=== PATIENT | male | born 2000 | race Caucasian/White ===

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

== ENCOUNTER 2019-07-29 16:07 | Emergency (ER) | payer BC, SELFPAY ==
[2019-07-29 17:02] VITALS: BP 126/89; PULSE 79; RESP 19; TEMP 36.8; O2SAT 97; BMI 27.1
--- NOTE | 2019-07-29 17:07 | HMH.EDUTC ---
[facility] [place] Clinical Impression: Sore throat Sinusitis Qualifiers: Sinusitis location: unspecified location Chronicity: unspecified Qualified Code(s): J32.9 - Chronic sinusitis, unspecified Disposition: Home, Self-Care Condition on Discharge: Good Instructions: Sore Throat, Sinusitis, Sinus Headache, DI for Sinusitis Additional Instructions: *Monitor Temp, Over the counter Motrin or Tylenol as directed/as needed Tylenol every 4 hours and Motrin every 6 hours (as long as your family doctor has told you that you can take it) for fever or pain. and straight to ER if unable to lower temp less than 101.0 after medication given *Warm salt water gargles may help to soothe the throat *Throat Lozenges *Warm fluids *Sleep elevated *Humidifier/Vaporizer *Flonase 2 sprays in each nostril daily but be aware that it may take 2-3 days before you notice improvement Your throat swab was sent for culture. Those results are typically sent to your primary care. Be sure to follow up in 2-3 days with your family doctor/primary care physician if no improvement so they can review those result and treat if necessary. If you don?t have a primary care doctor, I recommend you get one but in the mean time, you will have to return to a walk in clinic Follow up IMMEDIATELY for new or worsening symptoms or no Noticeable improvement over the next 48-72 hours. 911 for difficulty breathing or swallowing Prescriptions: Azithromycin [Z-Juancarlos 250mg Tab] 250 mg PO DIRECTED #6 tab Transmission Status: Received by [facility] Referrals: Darrius Muñoz MD [Primary Care Provider] - As needed Time of Disposition: 17:10 Medical Decision Making - Frnak Inquiry Pt receiving controlled substance: No Frank was queried for this patient: No Vital Signs: 07/29/19 17:02 07/29/19 17:18 Temperature 98.2 F 98.2 F Temperature Source Oral Pulse Rate 79 Pulse Rate [Right Brachial] 79 Respiratory Rate 19 19 Blood Pressure 126/89 Blood Pressure [Right Arm] 126/89 Blood Pressure Mean [Right Arm] 101 Blood Pressure Source [Right Arm] Automatic Cuff Blood Pressure Position [Right Arm] Sitting 02 Sat by Pulse Oximetry 97 Oxygen Delivery Method Room Air - Lab Data Lab results reviewed: Yes: I reviewed the patient's lab results. Orders (Tests/Meds): ED MEDICATIONS Discontinued Medications Generic Name Dose Route Start Last Admin Trade Name Chinyere PRN Reason Stop Dose Admin Methylprednisolone Sodium Succinate 125 mg 07/29/19 17:07 07/29/19 17:18 Solu-Medrol 125mg/2ml Vial IM 07/29/19 17:08 125 mg ONCE ONE Administration [facility] [place] - General Stated complaint: Sore throat Time Seen by Provider: 07/29/19 17:00 Mode of Arrival: Ambulatory Source of Information: Patient Limitations: No Limitations Description of Symptoms (Recalled from Triage Doc. by RN): PATIENT C/O SORE THROAT, POSSIBLE SINUS INFECTION, AND PRODUCTIVE COUGH WITH CLEAR SPUTUM SINCE LAST NIGHT. DENIES FEVER OR ANY SICK CONTACTS HEENT Symptoms (Recalled from RN notes): Yes Resp Symptoms (Recalled from RN notes): No Skin Symptoms (Recalled from RN notes): No MS Symptoms (Recalled from RN notes): No Functional Status (Recalled from RN notes): WNL - History of Present Illness Provider Complaint: Patient states that he has been having sore throat and sinus pain and pressure States that he was worried that he may have strep throat again States that sometimes he has similar symptoms with strep and sinus infections States that his throat has been feeling scratchy and having a lot of drainage in the back of his throat so mother brought him in - Related Data Previous Rx's Medication Instructions Recorded Azithromycin [Z-Juancarlos 250mg Tab] 250 mg PO DIRECTED #6 tab 07/29/19 Allergies Allergy/AdvReac Type Severity Reaction Status Date / Time Penicillins Allergy Unknown Verified 06/23/18 09:43 - Worker's Comp Is this a Worker's Comp case
[2019-07-29 17:18] VITALS: BP 126/89; PULSE 79; RESP 19; TEMP 36.8; O2SAT 97
[2019-08-01 11:27] LABS: UTC Strep Screen (Rapid) Negative (Negative)
== END 2019-07-29 17:20 | disposition home or self-care (01) ==
PROVIDERS: Emergency Provider Nurse Practitioner; PCP Internal Medicine Adolescent Medicine
DX: J32.9 Chronic sinusitis, unspecified (principal); Z90.09 Acquired absence of other part of head and neck
CPT/HCPCS: 87880; 96372; 99202

== ENCOUNTER 2020-02-04 19:35 | Emergency (ER) | payer BC, SELFPAY ==
[2020-02-04 19:50] VITALS: BP 141/66; PULSE 101; RESP 16; TEMP 37.6; O2SAT 96; BMI 27.6
--- NOTE | 2020-02-04 20:07 | HMH.EDUTC ---
[facility] [place] Clinical Impression: URI (upper respiratory infection) Qualifiers: URI type: unspecified URI Qualified Code(s): J06.9 - Acute upper respiratory infection, unspecified Disposition: Home, Self-Care Condition on Discharge: Good Instructions: DI for Viral Upper Respiratory Infection -- Adult Additional Instructions: No sign of a bacterial infection. Likely viral. Viruses can take 7-14 days to run their course. Nasal saline and bulb syringe or nose Sophia to remove nasal drainage to help with nasal congestion. Hard to eat, drink, sleep with nasal congestion so important to keep this cleaned out. Monitor temp. Tylenol or Motrin as needed for pain or fever Encourage fluids, water, Gatorade, Powerade, Pedialyte if infant/toddler/child Warm salt water gargles Warm fluids Sore throat lozenges Sleep elevated Humidifier/vaporizer Your covid swab was sent. with strep swab. These results are typically sent to the primary care. Be sure you follow-up in 2-3 days if no improvement so we can review the results Follow-up immediately for new or worsening symptoms or no noticeable improvement over the next 48-72 hours. Referrals: Storm Devine MD [Primary Care Provider] - Time of Disposition: 20:19 Medical Decision Making - Frank Inquiry Pt receiving controlled substance: No Vital Signs: 02/04/20 19:50 Temperature 99.7 F H Temperature Source Oral Pulse Rate [Right Brachial] 101 H Respiratory Rate 16 Blood Pressure [Right Arm] 141/66 H Blood Pressure Mean [Right Arm] 91 Blood Pressure Source [Right Arm] Automatic Cuff Blood Pressure Position [Right Arm] Sitting 02 Sat by Pulse Oximetry 96 Oxygen Delivery Method Room Air Orders (Tests/Meds): ORDERS Category Date Time Status Covid-19 Nasal PCR ([facility]) Routine Lab 02/04/20 19:45 Ordered [facility] [place] - General Chief complaint: [facility] Stated complaint: sore throat, drainage, headache Time Seen by Provider: 02/04/20 20:07 Mode of Arrival: Ambulatory Source of Information: Patient Limitations: No Limitations Description of Symptoms (Recalled from Triage Doc. by RN): PATIENT C/O SORE THROAT, DRAINAGE, BACKACHE, HEADACHE, AND CHILLS THAT STARTED THIS MORNING HEENT Symptoms (Recalled from RN notes): Yes Resp Symptoms (Recalled from RN notes): No Skin Symptoms (Recalled from RN notes): No MS Symptoms (Recalled from RN notes): No Functional Status (Recalled from RN notes): WNL - History of Present Illness Provider Complaint: 19 yr old male presnets for sore throat, headache, chills and body aches that started today. no known exposer to covid - Related Data Allergies Allergy/AdvReac Type Severity Reaction Status Date / Time Penicillins Allergy Unknown Verified 06/23/18 09:43 - Worker's Comp Is this a Worker's Comp case?: No [facility] History - Hepatitis A Screen Drug use history?: No High risk sexual behaviors?: No History of sexually transmitted infection?: No Currently employed?: No Childcare worker?: No Do you have indoor plumbing?: Yes Do you have electricity?: Yes Attestation statement:: This patient has been screened for Hepatitis A risk factors. I have reviewed the patient's past medical history: Yes 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: Denies:: Diabetes Mellitus Type 1, Diabetes Mellitus Type 2, Hypertension Laterality Cases: Bilateral: Tonsillectomy - Social History Smoking Status: Never smoker Alcohol Intake: never Occupational Status: other ROS Obtained: Yes Systems reviewed as appropriate & no additional complaints - Constitutional Constitutional: Reports system reviewed and no additional complaints, except as docu, Reports body ache, Reports chills, Denies fever(s) - Eyes Eyes: Reports system reviewed and no additional complaints, except as docu, Denies eye pain - ENT Ears, Nose, Mouth, and Throat: Reports system reviewed and no additional complaints, except as docu, Reports headache(s) - Cardiovascular [facility]
[2020-02-04 20:12] LABS: UTC Influenza A Antigen Negative (Negative)
[2020-02-04 20:13] VITALS: BP 141/66; PULSE 101; RESP 16; TEMP 37.6; O2SAT 96
[2020-02-04 20:13] LABS: UTC Influenza B Antigen Negative (Negative)
[2020-02-04 20:14] LABS: UTC Strep Screen (Rapid) Negative (Negative)
--- NOTE | 2020-02-05 09:39 | PC.NURSE ---
patient notified of positive covid results
== END 2020-02-04 20:15 | disposition home or self-care (01) ==
PROVIDERS: Emergency Provider Nurse Practitioner Family; PCP Internal Medicine Adolescent Medicine
DX: U07.1 COVID-19 (principal)
CPT/HCPCS: 87804; 87880; 99201; U0003

== ENCOUNTER 2022-03-02 12:41 | Emergency (ER) | payer BC, SELFPAY ==
--- NOTE | 2022-03-02 13:26 | EXP.UTC ---
Discharge Plan Disposition Patient Disposition: Home, Self-Care Referrals Follow up/Referrals: Storm Devine MD [Primary Care Provider] - See instructions Discharge ED Provider: Darrius [place]ers [facility] [place] Stated complaint: Congestion,cough Time Seen by Provider: 03/02/22 13:26 History of Present Illness Provider Complaint: He states that for the past 2 days he has had worsening sinus congestion, sore throat and chest congestion. He is coughing up yellowish sputum. He denies fever and chills. Related Data Allergies Allergy/AdvReac Type Severity Reaction Status Date / Time Penicillins Allergy Unknown Verified 06/23/18 09:43 [facility] Disclaimer: The information contained in this section may have been updated after the patient was seen, as this information can be updated by other users. 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 No significant past medical history Social History Smoking Status: Never smoker alcohol intake: never current occupational status: other Travel in the last 8 weeks: None ROS Obtained: Yes All systems reviewed & no additional complaints except as documented Constitutional Constitutional: Reports chills and Reports fever(s) Eyes Eyes: Denies eye discharge ENT Ears, Nose, Mouth, and Throat: Reports as per HPI Cardiovascular Cardiovascular: Denies chest pain Respiratory Respiratory: Denies chest congestion and Reports cough Gastrointestinal Gastrointestingal: Reports nausea; Denies abdominal pain, constipation, cramping, diarrhea or vomiting Musculoskeletal Musculoskeletal: Denies arthralgias Integumentary/Breasts Skin/Breast: Denies rash Neurologic Neurologic: Denies paresthesias Physical Exam General General appearance: alert and in no apparent distress Eye Eye exam: Present normal appearance, PERRL and EOMI ENT ENT exam: Present mucous membranes moist and normal external ear exam Expanded ENT Exam External ear exam: Present normal external inspection TM/Canal exam: Bilateral TM: erythema and bulging Nose exam: Absent sinus tenderness Nasal speculum exam: Bilateral: normal Mouth exam: Present normal external inspection; Absent drooling Teeth exam: Present normal inspection Throat exam: Present tonsillar erythema and tonsillomegaly Neck Neck exam: Present normal inspection, full ROM and trachea midline; Absent tenderness, lymphadenopathy or thyromegaly Chest Chest inspection: Present normal inspection and symmetric chest wall rise; Absent tenderness or rash Respiratory Respiratory exam: Present normal lung sounds bilaterally; Absent respiratory distress, wheezes, stridor or accessory muscle use Cardiovascular Cardiovascular exam: Present regular rate, normal rhythm and normal heart sounds Abdominal Exam Abdominal exam: Present soft; Absent distention, tenderness, guarding, rebound or rigidity Extremities Exam Extremities exam: Present normal inspection, full ROM and normal capillary refill; Absent tenderness or calf tenderness Back Exam Back exam: Present normal inspection and full ROM; Absent tenderness Neurological Exam Neurological exam: Present alert and oriented X3 Psychiatric Psychiatric exam: Present normal affect and normal mood Skin Skin exam: Present warm, dry, intact and normal color Lymphatic Lymphatic Findings: no adenopathy Medical Decision Making Medical Records Medical records reviewed: No I reviewed the patient's medical records. Frank Inquiry Pt receiving controlled substance: No
[2022-03-02 13:30] VITALS: BP 121/102; PULSE 73; RESP 20; TEMP 37.3; O2SAT 97; BMI 25.7
[2022-03-02 13:53] VITALS: BP 121/102; PULSE 73; RESP 20; TEMP 37.3; O2SAT 97
[2022-03-02 13:56] LABS: UTC Strep Screen (Rapid) Negative (Negative)
== END 2022-03-02 14:14 | disposition home or self-care (01) ==
PROVIDERS: Emergency Provider Nurse Practitioner Family; PCP Internal Medicine Adolescent Medicine
DX: J40 Bronchitis, not specified as acute or chronic (principal); J32.9 Chronic sinusitis, unspecified
CPT/HCPCS: 87880; 96372; 99212; 99213; G0463

== ENCOUNTER 2022-12-29 08:01 | Emergency (ER) | payer BC, SELFPAY ==
[2022-12-29 08:10] VITALS: BP 123/87; PULSE 73; RESP 18; TEMP 36.6; O2SAT 97; BMI 26.7
[2022-12-29 08:28] LABS: UTC Strep Screen (Rapid) Negative (Negative)
--- NOTE | 2022-12-29 08:38 | EXP.UTC ---
Discharge Plan Disposition Patient Disposition: Home, Self-Care Condition: Good Prescriptions Prescriptions: New prednisone [prednisone] 20 mg tablet 20 mg PO BID 3 Days Qty: 6 0RF owripgnczgzqbie-gemglmdnf-ES [Bromfed DM] 2-30-10 mg/5 mL Syrup 5 ml PO Q6H PRN (Reason: Cough) Qty: 240 0RF cefdinir 300 mg capsule 300 mg PO BID Qty: 20 0RF Referrals Follow up/Referrals: Storm Devine MD [Primary Care Provider] - See instructions Activity Restrictions/Add. Instructions Additional Instructions/Restrictions: Drink plenty of fluids. Take tylenol or ibuprofen for pain or fever. Take the medications as directed. Follow up with your regular doctor. GO TO THE ER FOR ANY WORSENING SYMPTOMS Clinical Impressions Clinical Impression: Sore throat Stand Alone Forms Stand Alone Forms: Work/School Release Instructions Patient Instructions: DI for Strep Throat Discharge ED Provider: Darrius Byers [facility] General Stated complaint: sore throat with drainage Mode of Arrival: Ambulatory Source of Information: Patient Limitations: No Limitations Time Seen by Provider: 12/29/22 08:38 Description of Symptoms (Recalled from Triage Doc. by RN): sinus pressure, sore throat, and nasal drainage HEENT Symptoms (Recalled from RN notes): Yes Resp Symptoms (Recalled from RN notes): No Skin Symptoms (Recalled from RN notes): No MS Symptoms (Recalled from RN notes): No Functional Status (Recalled from RN notes): n/a History of Present Illness Provider Complaint: He states that for the past 2 days he has had sore throat, chills, body aches and low grade fever. Related Data Previous Rx's Medication Instructions Recorded ezwhkebyubovgvp-crdcrcvzxeljtzg-DY 5 ml PO Q6H PRN Cough #240 mL 12/29/22 2 mg-30 mg-10 mg/5 mL oral syrup (Bromfed DM) cefdinir 300 mg capsule 300 mg PO BID #20 caps 12/29/22 prednisone 20 mg tablet 20 mg PO BID 3 days #6 tabs 12/29/22 Allergies Allergy/AdvReac Type Severity Reaction Status Date / Time Penicillins Allergy Unknown Verified 12/29/22 08:23 Worker's Comp Is this a Worker's Comp case?: No [facility] Disclaimer: The information contained in this section may have been updated after the patient was seen, as this information can be updated by other users. 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 No significant past medical history Social History Smoking Status: Never smoker alcohol intake: never current occupational status: other Travel in the last 8 weeks: None ROS Obtained: Yes All systems reviewed & no additional complaints except as documented Constitutional Constitutional: Reports chills and Reports fever(s) Eyes Eyes: Denies eye discharge ENT Ears, Nose, Mouth, and Throat: Reports as per HPI Cardiovascular Cardiovascular: Denies chest pain Respiratory Respiratory: Denies chest congestion and Reports cough Gastrointestinal Gastrointestingal: Reports nausea; Denies abdominal pain, constipation, cramping, diarrhea or vomiting Musculoskeletal Musculoskeletal: Denies arthralgias Integumentary/Breasts Skin/Breast: Denies rash Neurologic Neurologic: Denies paresthesias Physical Exam General General appearance: alert and in no apparent distress Head Head exam: atraumatic, normocephalic and normal inspection Eye Eye exam: Present normal appearance, PERRL and EOMI ENT ENT exam: Present mucous membranes moist and normal external ear exam Expanded ENT Exam TM/Canal exam: Bilateral TM: erythema and bulging Nose exam: Absent sinus tenderness Mouth exam: Present normal external inspection; Absent drooling Teeth exam: Present normal inspection Throat exam: Present tonsillar erythema, tonsillomegaly and tonsillar exudate Neck Neck exam: Present normal inspection, full ROM and trachea midline; Absent tenderness, meningismus or lymphadenopathy Chest Chest inspection: Presen
[2022-12-29 08:49] VITALS: BP 123/87; PULSE 73; RESP 18; TEMP 36.6; O2SAT 97
== END 2022-12-29 08:49 | disposition home or self-care (01) ==
PROVIDERS: Emergency Provider Nurse Practitioner Family; PCP Internal Medicine Adolescent Medicine
DX: J02.9 Acute pharyngitis, unspecified (principal); R68.83 Chills (without fever)
CPT/HCPCS: 87880; 99212; 99214; G0463

== ENCOUNTER 2023-02-26 15:25 | Emergency (ER) | payer BC, SELFPAY ==
[2023-02-26 15:40] VITALS: BP 111/58; PULSE 75; RESP 20; TEMP 37.1; O2SAT 96; BMI 26.2
--- NOTE | 2023-02-26 16:27 | ED_ITS ---
Discharge Plan Disposition Patient Disposition: Home, Self-Care Condition: Good Prescriptions Prescriptions: New azithromycin [Zithromax Z-Juancarlos] 250 mg tablet See Rx Instructions .ROUTE .COMPLEX 5 Days Qty: 6 0RF Rx Instructions: For 250 mg dose pack: take 500 mg today (day 1), then 250 mg for 4 days (days 2-5) methylprednisolone [Medrol (Juancarlos)] 4 mg tablets,dose pack See Rx Instructions .Route .COMPLEX 6 Days Qty: 21 0RF Rx Instructions: taper pack; Referrals Follow up/Referrals: Storm Devine MD [Primary Care Provider] - See instructions Activity Restrictions/Add. Instructions Additional Instructions/Restrictions: Monitor Temp, Over the counter Motrin or Tylenol as directed/as needed Tylenol every 4 hours and Motrin every 6 hours (as long as your family doctor has told you that you can take it) for fever or pain. and straight to ER if unable to lower temp less than 101.0 after medication given *Sleep elevated *Humidifier/Vaporizer *Take medication as prescribed Follow up IMMEDIATELY for new or worsening symptoms or no Noticeable improvement over the next 48-72 hours. 911 for difficulty breathing or swallowing Clinical Impressions Clinical Impression: Sinusitis Qualifiers: Sinusitis location: unspecified location Chronicity: unspecified Qualified Code(s): J32.9 - Chronic sinusitis, unspecified Instructions Patient Instructions: DI for Sinusitis, Sinusitis Discharge ED Provider: Lizett Day [facility] General Stated complaint: Body aches, cough, headache Mode of Arrival: Ambulatory Source of Information: Patient Limitations: No Limitations Time Seen by Provider: 02/26/23 16:27 Description of Symptoms (Recalled from Triage Doc. by RN): PATIENT C/O SINUS PRESSURE, HEADACHE AND BODY ACHES THAT STARTED LAST NIGHT HEENT Symptoms (Recalled from RN notes): Yes Resp Symptoms (Recalled from RN notes): No Skin Symptoms (Recalled from RN notes): No MS Symptoms (Recalled from RN notes): No Functional Status (Recalled from RN notes): WNL History of Present Illness Provider Complaint: Patient states that he works in [employer] and did a job a few days ago and got his sinuses acting up States that last night they got worse States that he has been having sinus pain and pressure, headache and feeling achy so he came in today to get something to help clear it up before it got too bad Related Data Previous Rx's Medication Instructions Recorded azithromycin 250 mg tablet See Rx Instructions PO .COMPLEX 5 02/26/23 (Zithromax Z-Juancarlos) days #6 tabs methylprednisolone 4 mg tablets in See Rx Instructions .Route 02/26/23 a dose pack (Medrol (Juancarlos)) .COMPLEX 6 days #21 tabs Allergies Allergy/AdvReac Type Severity Reaction Status Date / Time Penicillins Allergy Unknown Verified 12/29/22 08:23 Worker's Comp Is this a Worker's Comp case?: No [facility] Disclaimer: The information contained in this section may have been updated after the patient was seen, as this information can be updated by other users. 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 No significant past medical history Social History Smoking Status: Never smoker alcohol intake: never current occupational status: other Travel in the last 8 weeks: None ROS Obtained: Yes All systems reviewed & no additional complaints except as documented and Yes Systems reviewed as appropriate & no additional complaints except as documented Constitutional Constitutional: Reports system reviewed and no additional complaints, except as documented, Reports as per HPI, Reports body ache and Reports headache(s) ENT Ears, Nose, Mouth, and Throat: Reports system reviewed and no additional complaints, except as documented, Reports as per HPI, Reports headache(s), Reports sinus pain and Reports sinus pressure Cardiovascular Cardiovascular: Reports system reviewed and no additional complaints, except as documented and Reports as per HPI Respiratory Respiratory: Reports system reviewed and no additional complaints, except as documented and Reports as per HPI Gastrointestinal Gastrointestingal: Reports system reviewed and no additional complaints, except as documented and as per HPI Neurologic Neurologic: Reports headache(s) Physical Exam General General appearance: alert and in no apparent distress ENT ENT exam: Present mucous membranes moist Expanded ENT Exam Nose exam: Present sinus tenderness Throat exam: Present other (Pharyngeal erythema noted with PND) Respiratory Respiratory exam: Present normal lung sounds bilaterally; Absent respiratory distress or wheezes Cardiovascular Cardiovascular exam: Present regular rate, normal rhythm and normal heart sounds Neurological Exam Neurological exam: Present alert, oriented X3 and normal gait Medical Decision Making Frank Inquiry Pt receiving controlled substance: No Frank was queried for this patient: No Vital Signs: 02/26/23 15:40 Temperature 98.8 F Temperature Source Oral Pulse Rate [Left Brachial] 75 Respiratory Rate 20 Blood Pressure [Left Arm] 111/58 L Blood Pressure Mean [Left Arm] 75 Blood Pressure Source [Left Arm] Automatic Cuff Blood Pressure Position [Left Arm] Sitting 02 Sat by Pulse Oximetry 96 Oxygen Delivery Method Room Air
[2023-02-26 16:36] VITALS: BP 111/58; PULSE 75; RESP 20; TEMP 37.1; O2SAT 96
== END 2023-02-26 16:37 | disposition home or self-care (01) ==
PROVIDERS: Emergency Provider Nurse Practitioner; PCP Internal Medicine Adolescent Medicine
DX: J01.90 Acute sinusitis, unspecified (principal); R51.9 Headache, unspecified; R09.81 Nasal congestion; R05.9 Cough, unspecified; M79.18 Myalgia, other site
CPT/HCPCS: 99212; 99214; G0463

== ENCOUNTER 2023-05-16 08:59 | Emergency (ER) | payer BC, SELFPAY ==
[2023-05-16 09:10] VITALS: BP 119/70; PULSE 74; RESP 18; TEMP 37; O2SAT 99; BMI 25.2
[2023-05-16 09:36] LABS: UTC Influenza A Antigen Negative (Negative); UTC Influenza B Antigen Negative (Negative); UTC Strep Screen (Rapid) Negative (Negative)
[2023-05-16 09:37] VITALS: BP 119/70; PULSE 74; RESP 18; TEMP 37; O2SAT 99
--- NOTE | 2023-05-16 09:38 | ED_ITS ---
Discharge Plan Disposition Patient Disposition: Home, Self-Care Condition: Good Prescriptions Prescriptions: New cefdinir 300 mg capsule 300 mg PO BID Qty: 20 0RF Referrals Follow up/Referrals: Storm Devine MD [Primary Care Provider] - See instructions Activity Restrictions/Add. Instructions Additional Instructions/Restrictions: Start antibiotic patient to take as ordered for a full length of time even if you feel better. Sinus infections do not get better overnight. It may take 2-3 days to notice much improvement so be sure to use conservative measures as discussed for symptoms. Flonase 1 spray each nostril daily to help with nasal congestion, sinus and ear pressure/information Increase fluids Humidifier/vaporizer as needed Tylenol and ibuprofen as needed for fever or pain. If symptoms do not improve or get worse return or be seen in the ER Follow-up with primary care this week Clinical Impressions Clinical Impression: Sinusitis Instructions Patient Instructions: DI for Sinusitis Discharge [facility] HPI General Stated complaint: bodyaches, sore throat Mode of Arrival: Ambulatory Source of Information: Patient Limitations: No Limitations Time Seen by Provider: 05/16/23 09:39 Description of Symptoms (Recalled from Triage Doc. by RN): PATIENT C/O BODY ACHES AND SORE THROAT SINCE YESTERDAY HEENT Symptoms (Recalled from RN notes): Yes Resp Symptoms (Recalled from RN notes): No Skin Symptoms (Recalled from RN notes): No MS Symptoms (Recalled from RN notes): No Functional Status (Recalled from RN notes): WNL History of Present Illness Provider Complaint: 22 yr old male presents for sinus pressure, thick dark yellow drainage, body aches and chills Related Data Previous Rx's Medication Instructions Recorded cefdinir 300 mg capsule 300 mg PO BID #20 caps 05/16/23 Allergies Allergy/AdvReac Type Severity Reaction Status Date / Time Penicillins Allergy Unknown Verified 12/29/22 08:23 Worker's Comp Is this a Worker's Comp case?: No [facility] Disclaimer: The information contained in this section may have been updated after the patient was seen, as this information can be updated by other users. 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) Smoking Status: Never smoker alcohol intake: never current occupational status: other Travel in the last 8 weeks: None ROS Obtained: Yes All systems reviewed & no additional complaints except as documented Constitutional Constitutional: Reports system reviewed and no additional complaints, except as documented, Reports as per HPI, Reports body ache and Reports chills Eyes Eyes: Reports system reviewed and no additional complaints, except as documented ENT Ears, Nose, Mouth, and Throat: Reports system reviewed and no additional complaints, except as documented, Reports as per HPI, Reports nasal congestion, Reports nasal discharge, Reports post nasal drip, Reports sinus pain and Reports sinus pressure Cardiovascular Cardiovascular: Reports system reviewed and no additional complaints, except as documented Respiratory Respiratory: Reports system reviewed and no additional complaints, except as documented Musculoskeletal Musculoskeletal: Reports system reviewed and no additional complaints, except as documented Integumentary/Breasts Skin/Breast: Reports system reviewed and no additional complaints, except as documented Neurologic Neurologic: Reports system reviewed and no additional complaints, except as documented Endocrine Endocrine: Reports system reviewed and no additional complaints, except as documented Hematologic/Lymphatic Henatologic/Lymphatic: Reports system reviewed and no additional complaints, except as documented Allergic/Immunologic Allergic/Immunologic: Reports system reviewed and no additional complaints, except as documented Physical Exam General General appearance: alert and in no apparent distress Head Head exam: atraumatic Eye Eye exam: Present normal appearance and PERRL ENT ENT exam: Present mucous membranes moist and TM's normal bilaterally Expanded ENT Exam Nose exam: Present sinus tenderness Respiratory Respiratory exam: Present normal lung sounds bilaterally Cardiovascular Cardiovascular exam: Present regular rate and normal rhythm Neurological Exam Neurological exam: Present alert and oriented X3 Skin Skin exam: Present warm and intact Medical Decision Making Medical Records Medical records reviewed: Yes I reviewed the patient's medical records. Frank Inquiry Pt receiving controlled substance: No Frank was queried for this patient: No Vital Signs: 05/16/23 09:10 05/16/23 09:37 Temperature 98.6 F 98.6 F Temperature Source Oral Pulse Rate 74 Pulse Rate [Left Brachial] 74 Respiratory Rate 18 18 Blood Pressure 119/70 Blood Pressure [Left Arm] 119/70 Blood Pressure Mean [Left Arm] 86 Blood Pressure Source [Left Arm] Automatic Cuff Blood Pressure Position [Left Arm] Sitting 02 Sat by Pulse Oximetry 99 Oxygen Delivery Method Room Air Lab Data Lab results reviewed: Yes I reviewed the patient's lab results. Lab Results 05/16/23 09:13: Influenza Type A Ag Negative, Influenza Type B Ag Negative, Strep Scn Rapid Clinic Negative Orders (Tests/Meds): ORDERS Category Date Time Status Strep Screen Confirmation Stat Micro 05/16/23 09:13 Received
[2023-05-16] MEDS: DEXAMETHASONE 4MG/ML 1ML VIAL 4 MG IM (09:48)
== END 2023-05-16 09:57 | disposition home or self-care (01) ==
PROVIDERS: Emergency Provider Nurse Practitioner Family; PCP Internal Medicine Adolescent Medicine
DX: J01.90 Acute sinusitis, unspecified (principal); J02.9 Acute pharyngitis, unspecified
CPT/HCPCS: 87804; 87880; 96372; 99212; 99214; G0463

== ENCOUNTER 2024-01-22 08:01 | Emergency (ER) | payer BC, SELFPAY ==
[2024-01-22 08:09] VITALS: BP 143/45; PULSE 87; RESP 18; TEMP 37.2; O2SAT 96; BMI 27.3
--- NOTE | 2024-01-22 08:14 | ED_ITS ---
Discharge Plan Disposition Patient Disposition: Home, Self-Care Condition: Good Prescriptions Prescriptions: New doxycycline hyclate 100 mg capsule 100 mg PO BID Qty: 20 0RF methylprednisolone [Medrol (Juancarlos)] 4 mg tablets,dose pack See Rx Instructions .Route .COMPLEX 6 Days Qty: 21 0RF Rx Instructions: taper pack; [id number]-DO [Bromfed DM] 2-30-10 mg/5 mL syrup 10 ml PO Q6H PRN (Reason: cold symptoms) Qty: 150 0RF Referrals Follow up/Referrals: Storm Devine MD [Primary Care Provider] - See instructions Activity Restrictions/Add. Instructions Additional Instructions/Restrictions: *Monitor Temp, Over the counter Motrin or Tylenol as directed/as needed Tylenol every 4 hours and Motrin every 6 hours (as long as your family doctor has told you that you can take it) for fever or pain. and straight to ER if unable to lower temp less than 101.0 after medication given *Warm salt water gargles may help to soothe the throat *Throat Lozenges? *Warm fluids like tea with honey may help to soothe the throat? *Sleep elevated *Humidifier/Vaporizer Take medication as prescribed Follow up IMMEDIATELY for new or worsening symptoms or no Noticeable improvement over the next 48-72 hours. 911 for difficulty breathing or swallowi ng Clinical Impressions Clinical Impression: Sinusitis Instructions Patient Instructions: DI for Sinusitis, Sinusitis Print Language Print Language: Yoruba Discharge ED Provider: Lizett Day [facility] HPI General Stated complaint: sinus pressure, headache Mode of Arrival: Ambulatory Source of Information: Patient Time Seen by Provider: 01/22/24 08:14 Description of Symptoms (Recalled from Triage Doc. by RN): ? thinks he has a sinus infection, congestion and nasal pressure, thick drainage HEENT Symptoms (Recalled from RN notes): Yes Resp Symptoms (Recalled from RN notes): No Skin Symptoms (Recalled from RN notes): No MS Symptoms (Recalled from RN notes): No Functional Status (Recalled from RN notes): WNL History of Present Illness Provider Complaint: Patient states feels like he has a sinus infection States he has been having sinus congestion and pressure, pressure behind his eyes, and at times coughing up some thick yellowish colored mucous that has got worse over the last few days States today wasnt feeling any better so he came in to get it checked Related Data Previous Rx's ?Medication ?Instructions ?Recorded [id number]-njmonixgpmncyzn-FE 10 ml PO Q6H PRN cold symptoms 01/22/24 2 mg-30 mg-10 mg/5 mL oral syrup #150 mL (Bromfed DM) doxycycline hyclate 100 mg capsule 100 mg PO BID #20 caps 01/22/24 methylprednisolone 4 mg tablets in See Rx Instructions .Route 01/22/24 a dose pack (Medrol (Juancarlos)) .COMPLEX 6 days #21 tabs Allergies Allergy/AdvReac Type Severity Reaction Status Date / Time Penicillins Allergy Unknown Verified 12/29/22 08:23 Worker's Comp Is this a Worker's Comp case?: No [facility] Disclaimer: The information contained in this section may have been updated after the patien angelo was seen, as this information can be updated by other users. 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) Smoking Status: Never smoker alcohol intake: never current occupational status: other ROS Obtained: Yes All systems reviewed & no additional complaints except as documented and Yes Systems reviewed as appropriate & no additional complaints except as documented Constitutional Constitutional: Reports system reviewed and no additional complaints, except as documented and Reports as per HPI ENT Ears, Nose, Mouth, and Throat: Reports system reviewed and no additional complaints, except as documented, Reports as per HPI, Reports sinus pain and Reports sinus pressure Cardiovascular Cardiovascular: Reports system reviewed and no additional complaints, except as documented and Reports as per HPI Respiratory Respiratory: Reports system reviewed and no additional complaints, except as documented, Reports as per HPI, Denies shortness of breath, Reports chest congestion and Reports cough Gastrointestinal Gastrointestingal: Reports system reviewed and no additional complaints, except as documented and as per HPI Physical Exam General General appearance: alert and in no apparent distress ENT ENT exam: Present mucous membranes moist and TM's normal bilaterally Expanded ENT Exam Nose exam: Present sinus tenderness Throat exam: Present other (Pharyngeal erythema noted with PND) Chest Chest inspection: Present normal inspection and symmetric chest wall rise Respiratory Respiratory exam: Present normal lung sounds bilaterally; Absent respiratory distress or wheezes Cardiovascular Cardiovascular exam: Present regular rate, normal rhythm and normal heart sounds Abdominal Exam Abdominal exam: Present soft and normal bowel sounds; Absent distention or tenderness Neurological Exam Neurological exam: Present alert, oriented X3 and normal gait Medical Decision Making Medical Records Screening: Per USPSTF and CDC recommendations, given the prevalence of disease in our region, it is our hospital?s policy to screen for HIV and viral Hepatitis for al l patients aged 18 and over and those with ongoing risk factors. Frank Inquiry Pt receiving controlled substance: No Frank was queried for this patient: No Vital Signs: 01/22/24 08:09 Temperature 98.9 F Temperature Source Oral Pulse Rate [Left Radial] 87 Respiratory Rate 18 Blood Pressure [Left Arm] 143/45 H Blood Pressure Mean [Left Arm] 77 02 Sat by Pulse Oximetry 96
[2024-01-22 08:20] VITALS: BP 143/45; PULSE 87; RESP 18; TEMP 37.2
== END 2024-01-22 08:23 | disposition home or self-care (01) ==
PROVIDERS: Emergency Provider Nurse Practitioner; PCP Internal Medicine Adolescent Medicine
DX: J01.90 Acute sinusitis, unspecified (principal); R09.81 Nasal congestion; R51.9 Headache, unspecified
CPT/HCPCS: 99212; G0381

== ENCOUNTER 2024-03-08 08:23 | Emergency (ER) | payer BC, SELFPAY ==
[2024-03-08 08:33] VITALS: BP 148/67; PULSE 68; RESP 18; TEMP 37.1; O2SAT 96; BMI 26.3
--- NOTE | 2024-03-08 08:37 | EXP.UTC ---
Discharge Plan Disposition Patient Disposition: Home, Self-Care Condition: Good Prescriptions Prescriptions: New methylprednisolone 4 mg Tablets,Dose Pack 4 mg PO DIRECTED 6 Days Qty: 21 0RF Rx Instructions: Take 1 pack as directed for 6 days [id number]-[id number]-IP [Bromfed DM] 2-30-10 mg/5 mL Syrup 5 ml PO Q6H PRN (Reason: Cough) Qty: 240 0RF azithromycin [Zithromax] 250 mg tablet 250 mg PO UD DOSE PK Qty: 6 0RF Rx Instructions: Take two (2) tablets today, then one (1) tablet days #2 thru #5 Referrals Follow up/Referrals: Storm Devine MD [Primary Care Provider] - See instructions Activity Restrictions/Add. Instructions Additional Instructions/Restrictions: Drink plenty of fluids. Take tylenol or ibuprofen for pain or fever. Take the medications as directed. Follow up with your regular doctor. GO TO THE ER FOR ANY WORSENING SYMPTOMS Clinical Impressions Clinical Impression: Pharyngitis Sinusitis Qualifiers: Sinusitis location: unspecified location Chronicity: unspecified Qualified Code(s): J32.9 - Chronic sinusitis, unspecified Instructions Patient Instructions: Sore Throat, DI for Pharyngitis/Tonsillopharyngitis -- Adult, DI for Sinusitis, Methylprednisolone, Azithromycin Print Language Print Language: New Zealander Discharge ED Provider: Darrius Byers [facility] General Stated complaint: sore throat congestion Mode of Arrival: Ambulatory Source of Information: Patient Time Seen by Provider: 03/08/24 08:37 Description of Symptoms (Recalled from Triage Doc. by RN): sore throat, weakness, congestion, sinus drainage HEENT Symptoms (Recalled from RN notes): Yes Resp Symptoms (Recalled from RN notes): No Skin Symptoms (Recalled from RN notes): No MS Symptoms (Recalled from RN notes): No Functional Status (Recalled from RN notes): wnl History of Present Illness Provider Complaint: He states that he has had a sore throat and sinus congestion for the past 3 days. He denies any fever/chills/body aches. Related Data Previous Rx's ?Medication ?Instructions ?Recorded azithromycin 250 mg tablet 250 mg PO UD DOSE PK #6 tabs 03/08/24 (Zithromax) [id number]-lsllwxxpwbtgcud-IP 5 ml PO Q6H PRN Cough #240 mL 03/08/24 2 mg-30 mg-10 mg/5 mL oral syrup (Bromfed DM) methylprednisolone 4 mg tablets in 4 mg PO DIRECTED 6 days #21 tabs 03/08/24 a dose pack Allergies Allergy/AdvReac Type Severity Reaction Status Date / Time Penicillins Allergy Unknown Verified 12/29/22 08:23 Worker's Comp Is this a Worker's Comp case?: [facility] Disclaimer: The information contained in this section may have been updated after the patient was seen, as this information can be updated by other users. 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 Social History (Updated 01/22/24 @ 08:19 by Lizett Day ENVIRONMENTAL PROGRAMS MANAGER) Smoking Status: Never smoker alcohol intake: never current occupational status: other Travel in the last 8 weeks: None ROS Obtained: Yes All systems reviewed & no additional complaints except as documented Constitutional Constitutional: Reports as per HPI, Denies chills and Denies fever(s) Eyes Eyes: Denies eye discharge ENT Ears, Nose, Mouth, and Throat: Reports as per HPI Cardiovascular Cardiovascular: Denies chest pain Respiratory Respiratory: Denies chest congestion and Reports cough Gastrointestinal Gastrointestingal: Reports nausea; Denies abdominal pain, constipation, cramping, diarrhea or vomiting Musculoskeletal Musculoskeletal: Denies arthralgias Integumentary/Breasts Skin/Breast: Denies rash Neurologic Neurologic: Denies paresthesias Physical Exam General General appearance: alert and in no apparent distress Head Head exam: atraumatic, normocephalic and normal inspection Eye Eye exam: Present normal appearance, PERRL and EOMI ENT ENT exam: Present mucous membranes moist and normal external ear exam Expanded ENT Exam TM/Canal exam: Bilateral TM: erythema and bulging Nose exam: Absent sinus tenderness Mouth exam: Present normal external inspection; Absent drooling Teeth exam: Present normal inspection Throat exam: Present tonsillar erythema, tonsillomegaly and tonsillar exudate Neck Neck exam: Present normal inspection, full ROM and trachea midline; Absent tenderness, meningismus or lymphadenopathy Chest Chest inspection: Present normal inspection and symmetric chest wall rise; Absent tenderness Respiratory Respiratory exam: Present normal lung sounds bilaterally; Absent respiratory distress, wheezes or stridor Cardiovascular Cardiovascular exam: Present regular rate and normal rhythm; Absent systolic murmur or diastolic murmur Abdominal Exam Abdominal exam: Present soft and normal bowel sounds; Absent distention, tenderness, guarding, rebound or rigidity Extremities Exam Extremities exam: Present normal inspection and normal capillary refill; Absent calf tenderness Back Exam Back exam: Present normal inspection and full ROM; Absent tenderness, CVA tenderness (R) or CVA tenderness (L) Neurological Exam Neurological exam: Present alert, oriented X3 and CN II-XII intact Psychiatric Psychiatric exam: Present normal affect and normal mood Skin Skin exam: Present warm, dry, intact and normal color Medical Decision Making Medical Records Medical records reviewed: No I reviewed the patient's medical records. Screening: Per USPSTF and CDC recommendations, given the prevalence of disease in our region, it is our hospital?s policy to screen for HIV and viral Hepatitis for all patients aged 18 and over and those with ongoing risk factors. Frank Inquiry Pt receiving controlled substance: No Vital Signs: 03/08/24 08:33 Temperature 98.7 F Temperature Source Oral Pulse Rate [Left Radial] 68 Respiratory Rate 18 Blood Pressure [Left Arm] 148/67 H Blood Pressure Mean [Left Arm] 94 02 Sat by Pulse Oximetry 96 Lab Data Lab results reviewed: Yes I reviewed the patient's lab results.
[2024-03-08 08:44] LABS: UTC Strep Screen (Rapid) Negative (Negative)
[2024-03-08 08:47] VITALS: BP 148/67; PULSE 68; RESP 18; TEMP 37.1
== END 2024-03-08 08:49 | disposition home or self-care (01) ==
PROVIDERS: Emergency Provider Nurse Practitioner Family; PCP Internal Medicine Adolescent Medicine
DX: J02.9 Acute pharyngitis, unspecified (principal); J32.9 Chronic sinusitis, unspecified; R05.9 Cough, unspecified; R11.0 Nausea
CPT/HCPCS: 87880; 99212; G0381